=== PATIENT | female | born 1955 | race Caucasian/White ===

== ENCOUNTER 2024-10-05 09:14 | Day surgery (SDC) | payer MEDICARE ==
[~2024-10-05 09:14] MED LIST: Sodium Chloride 0.9% 10 ML Syringe FLUSH PRN
== END 2024-10-05 10:30 | disposition home or self-care (01) ==
LOC: JP.SDS 09:14
PROVIDERS: ATTEND Ophthalmology
DX: H25.12 Age-related nuclear cataract, left eye (principal); E66.9 Obesity, unspecified
CPT/HCPCS: 66984; V2632; 00142-QZ

== ENCOUNTER 2024-11-09 08:01 | Day surgery (SDC) | payer MEDICARE ==
[2024-11-09] MEDS: Sodium Chloride 0.9% 10 ML Syringe FLUSH ONE (09:02)
== END 2024-11-09 09:52 | disposition home or self-care (01) ==
LOC: JP.SDS 08:01
PROVIDERS: ATTEND Ophthalmology
DX: H25.11 Age-related nuclear cataract, right eye (principal); Z88.0 Allergy status to penicillin
CPT/HCPCS: 66984; V2632; 00142-QZ